=== PATIENT | female | born 1965 | race Asian ===

== ENCOUNTER 2019-06-09 07:07 | Inpatient (IN) | payer BC, OTHER ==
[2019-06-06 16:31] LABS: BASOPHILS # (AUTO) 0.04 x10^3/uL (0-0.1); BASOPHILS % (AUTO) 1 % (0-1); EOSINOPHILS # (AUTO) 0.11 x10^3/uL (0-0.4); EOSINOPHILS % (AUTO) 2 % (1-7); LYMPHOCYTES # (AUTO) 2.22 x10^3/uL (1-3.4); LYMPHOCYTES % (AUTO) 30 % (22-44); MD NO; MEAN CORPUSCULAR HGB CONC 31.3 g/dL (32.4-35.8); MEAN CORPUSCULAR VOLUME 70.4 fL (80-100); MEAN PLATELET VOLUME 8.6 fL (7.4-10.4); MONOCYTES # (AUTO) 0.52 x10^3/uL (0.2-0.8); MONOCYTES % (AUTO) 7 % (2-9); NEUTROPHILS # (AUTO) 4.46 x10^3/uL (1.8-6.8); NEUTROPHILS % (AUTO) 61 % (42-75); PLATELET COUNT 266 x10^3/uL (130-400); RED BLOOD COUNT 5.88 x10^6/uL (3.82-5.3); RED CELL DISTRIBUTION WIDTH 15.4 % (9.6-15.2)
[2019-06-06 16:32] LABS: MICROSCOPIC NOT IND
[2019-06-06 16:37] LABS: ANION GAP 7 mmol/L (5-15); CALCIUM 9.1 mg/dL (8.5-10.1); CHLORIDE 108 mmol/L (98-107); CREATININE 0.84 mg/dL (0.55-1.02); INTERNATIONAL NORMALIZED RATIO 0.98 (0.93-1.1); PROTHROMBIN TIME 10.3 Seconds (9.6-11.5)
[2019-06-06 16:39] LABS: CULTURE INDICATED? NO
[2019-06-06 17:03] LABS: ALBUMIN 3.7 g/dL (3.4-5.0)
[2019-06-06 17:04] LABS: ALANINE AMINOTRANSFERASE 33 U/L (12-78)
[2019-06-06 17:05] LABS: ALKALINE PHOSPHATASE 74 U/L (45-117); BILIRUBIN,TOTAL 0.3 mg/dL (0.2-1.0); TOTAL PROTEIN 7.6 g/dL (6.4-8.2)
[~2019-06-09] VITALS: Ht 154.9 cm; Wt 79.0 kg
[~2019-06-09 07:07] MED LIST: BACITRACIN 50,000 UNIT ONE; BUPIVACAINE 0.25% ONE; BUPIVACAINE/PF 0.5% ONE; EPINEPHRINE 1 MG/ML, 1ML ONE; GABA300C10 PO; LOSA50TA14 PO; MELO15TA24 PO; THROMBIN 5,000 UNIT VIAL TP ONE
[2019-06-09] MEDS ORDERED: LACTATED RINGERS 1,000 ML IV SCH (08:00)
[2019-06-09 08:10] VITALS: BP 147/89
[2019-06-09] MEDS ORDERED: OxyconTIN ER 10 MG TAB.ER PO ONE (08:30)
[2019-06-09] MEDS ORDERED: FAMOTIDINE 20 MG TABLET PO ONE (08:30)
[2019-06-09] MEDS ORDERED: ACETAMINOPHEN 500 MG TABLET PO ONE (08:30)
[2019-06-09] MEDS ORDERED: GABAPENTIN 300 MG CAPSULE PO ONE (08:30)
[2019-06-09] MEDS ORDERED: MIDAZOLAM 1 MG/ML, 2ML ONE (08:35)
[2019-06-09] MEDS ORDERED: FENTANYL PF 250 MCG/5ML ONE (08:35)
[2019-06-09] MEDS ORDERED: PROPOFOL 100 ML ONE (08:37)
[2019-06-09] MEDS ORDERED: CEFAZOLIN 1,000 MG ONE ×2 (09:41)
[2019-06-09] MEDS ORDERED: LABETALOL 5MG/ML, 20ML IV PRN (10:00)
[2019-06-09] MEDS ORDERED: HYDROmorphone 2 MG/ML, 1ML IVPush PRN ×2 (10:00→13:00)
[2019-06-09] MEDS ORDERED: MEPERIDINE/PF 25MG/ML,1ML IVPush PRN (10:00)
[2019-06-09] MEDS ORDERED: ONDANSETRON 2MG/ML, 2ML IV PRN (10:00)
[2019-06-09] MEDS ORDERED: OXYcodone 5 MG/5 ML ORAL.SOL UDC PO PRN (10:00)
[2019-06-09] MEDS ORDERED: PROMETHAZINE 25 MG/ML, 1ML IV PRN (10:00)
[2019-06-09] MEDS ORDERED: hydrALAzine 20 MG/ML, 1ML IV PRN (10:00)
[2019-06-09] MEDS ORDERED: DIAZEPAM 5 MG/ML, 2ML IVPush PRN (10:00)
[2019-06-09] MEDS ORDERED: FENTANYL PF 100 MCG/2ML IV PRN (10:00)
[2019-06-09] MEDS ORDERED: FENTANYL PF 100 MCG/2ML ONE (10:18)
[2019-06-09] MEDS ORDERED: VANCOMYCIN 1,000 MG ONE (10:41)
[2019-06-09] MEDS ORDERED: FENTANYL PF 100 MCG/2ML EPIDPUSH ONE (10:47)
[2019-06-09] MEDS ORDERED: BUPIVACAINE LIPOSOME/PF 20ML INFIL ONE ×2 (10:47→11:58)
[2019-06-09] MEDS ORDERED: BUPIVACAINE/PF 0.25% EPIDPUSH ONE (10:47)
[2019-06-09] MEDS ORDERED: ONDANSETRON 2MG/ML, 2ML ONE (10:48)
[2019-06-09] MEDS ORDERED: DEXAMETHASONE 4 MG/ML, 1ML ONE (11:49)
[2019-06-09] MEDS ORDERED: METHOCARBAMOL 1,000 MG in DEXTROSE 5% 100 ML IV ONE (12:00)
[2019-06-09] MEDS ORDERED: PHARMACY MAY ADJ FOR RENAL FX MC PRN (12:00)
[2019-06-09] MEDS ORDERED: DIPHENHYDRAMINE 50 MG/ML, 1ML IVPush PRN (13:00)
[2019-06-09] MEDS ORDERED: LOSARTAN MC SCH (13:00)
[2019-06-09] MEDS ORDERED: HYDROcodone/APAP 10/325 MG TABLET PO PRN (13:00)
[2019-06-09] MEDS ORDERED: BISACODYL 10 MG SUPP PR PRN (13:00)
[2019-06-09] MEDS ORDERED: LABETALOL 5 MG/ML SYR. (IV ONLY) IV PRN (13:00)
[2019-06-09] MEDS ORDERED: MAGNESIUM HYDROXIDE 8%, 30ML UDC PO PRN (13:00)
[2019-06-09] MEDS ORDERED: PROMETHAZINE 25 MG/ML, 1ML IM PRN (13:00)
[2019-06-09] MEDS ORDERED: GABAPENTIN MC SCH (13:00)
[2019-06-09 14:00] VITALS: BP 129/79
[2019-06-09] MEDS: D5%-0.9% NACL+KCL 20MEQ 1,000 ML IV SCH (16:00)
[2019-06-09] MEDS ORDERED: ROCURONIUM 10MG/ML,5ML ONE (16:03)
[2019-06-09] MEDS: ONDANSETRON 2MG/ML, 2ML IV PRN (17:08)
[2019-06-09] MEDS: HYDROcodone/APAP 5/325 TABLET PO PRN ×2 (17:09→21:57)
[2019-06-09] MEDS: CEFAZOLIN PMX 1GM/50ML 50 ML IVPB SCH (17:49)
[2019-06-09 18:42] VITALS: BP 130/79
[2019-06-09] MEDS ORDERED: ZOLPIDEM 5MG TABLET PO PRN (21:00)
[2019-06-09] MEDS ORDERED: GABAPENTIN 300 MG CAPSULE PO SCH (21:00)
[2019-06-10 00:20] VITALS: BP 113/70
[2019-06-10] MEDS: CEFAZOLIN PMX 1GM/50ML 50 ML IVPB SCH (01:55)
[2019-06-10] MEDS: HYDROcodone/APAP 5/325 TABLET PO PRN (02:06)
[2019-06-10] MEDS: D5%-0.9% NACL+KCL 20MEQ 1,000 ML IV SCH ×2 (02:13→11:48)
[2019-06-10] MEDS: ONDANSETRON 2MG/ML, 2ML IV PRN (03:00)
[2019-06-10 05:30] LABS: ANION GAP 6 mmol/L (5-15); BASOPHILS # (AUTO) 0.01 x10^3/uL (0-0.1); BASOPHILS % (AUTO) 0 % (0-1); CHLORIDE 110 mmol/L (98-107); CREATININE 0.74 mg/dL (0.55-1.02); EOSINOPHILS % (AUTO) 0 % (1-7); LYMPHOCYTES # (AUTO) 1.52 x10^3/uL (1-3.4); LYMPHOCYTES % (AUTO) 14 % (22-44); MD NO; MEAN CORPUSCULAR HEMOGLOBIN 22.1 pg (27.0-34.8); MEAN CORPUSCULAR HGB CONC 30.9 g/dL (32.4-35.8); MEAN CORPUSCULAR VOLUME 71.7 fL (80-100); MEAN PLATELET VOLUME 8.8 fL (7.4-10.4); MONOCYTES # (AUTO) 0.66 x10^3/uL (0.2-0.8); MONOCYTES % (AUTO) 6 % (2-9); NEUTROPHILS # (AUTO) 8.74 x10^3/uL (1.8-6.8); NEUTROPHILS % (AUTO) 80 % (42-75); PLATELET COUNT 259 x10^3/uL (130-400); RED BLOOD COUNT 5.43 x10^6/uL (3.82-5.3); RED CELL DISTRIBUTION WIDTH 15.7 % (9.6-15.2)
[2019-06-10] MEDS ORDERED: ENOXAPARIN 40 MG/0.4 ML SQ SCH (06:00)
[2019-06-10 07:00] VITALS: BP 113/64
[2019-06-10] MEDS ORDERED: SENNA/DOCUSATE TABLET PO SCH (09:00)
[2019-06-10] MEDS ORDERED: LOSARTAN 50MG TABLET PO SCH (09:00)
[2019-06-10] MEDS ORDERED: HYDR-3240 PO (09:21)
[2019-06-10] MEDS ORDERED: METH750T87 PO (09:21)
[2019-06-10] MEDS ORDERED: CEPH-368 PO (09:22)
[2019-06-11] MEDS ORDERED: METHOCARBAMOL 750 MG TABLET PO SCH (20:00)
== END 2019-06-10 13:10 | disposition home or self-care (01) | DRG 520 ==
LOC: OUT 07:07 → 4NE 12:22 → OUT 12:34 → 4NE 12:34 → DCLOUNGE 06-10 13:10
PROVIDERS: ADMIT Neurological Surgery; ATTEND Neurological Surgery
PROC: 0SB20ZZ Excision of Lumbar Vertebral Disc, Open Approach (ICD-10-PCS; 2019-06-09)
PROC: 01NB0ZZ Release Lumbar Nerve, Open Approach (ICD-10-PCS; principal; 2019-06-09 10:00)
DX: M48.07 Spinal stenosis, lumbosacral region (principal); M51.37 Other intervertebral disc degeneration, lumbosacral region; I10 Essential (primary) hypertension
CPT/HCPCS: 36415; 72100; S0020; 71046; 80048; 80053; 81003; 85025; 85610; 85730; 93005; C9290; G0378; J0171; J0690; J1100; J1650; J2250; J2405; J2704; J3010; J3370; J3490; J2800; J3480